=== PATIENT | male | born 1950 | race Caucasian/White ===

== ENCOUNTER 2016-07-27 15:30 | Emergency (ER) | payer MEDICARE, OTHER ==
[2016-07-27 16:21] LABS: #Basophils 0.1 thou/uL (0.0-0.2); #Eosinphils 0.1 thou/uL (0.0-0.7); #Lymphocytes 2.3 thou/uL (1.20-3.40); #Monocytes 0.5 thou/uL (0.11-0.59); #Neutrophils 2.5 thou/uL (1.40-6.50); %Basophils 2.7 % (0.0-1.0); %Eosinophils 2.5 % (0.0-10.0); %Lymphocytes 41.7 % (21.0-51.0); %Monocytes 9.3 % (0.0-10.0); Hematocrit 26.2 % (42.0-52.0); Mean Platelet Volume 6.2 fL (7.4-10.4); Red Blood Cell (RBC) Count 2.61 mill/uL (4.70-6.10); White Blood Cell (WBC) Count 5.6 thou/uL (4.8-10.8)
--- NOTE | 2016-07-27 16:23 | RAD ---
SINGLE VIEW OF THE CHEST: 07/27/16 COMPARISON: 06/21/15 HISTORY: Multiple falls today with bilateral leg pain with weightbearing. Positive alcohol intoxication. FINDINGS: Single view of the chest shows a normal sized cardiomediastinal silhouette with atherosclerotic calc ifications in the aorta. There is no evidence of consolidation, mass, or pleural effusion. IMPRESSION: 1. No evidence of acute cardiopulmonary disease. 2. Atherosclerotic disease. POS: JUAN JOSEH
[2016-07-27 16:36] LABS: ALT (SGPT) 16 U/L (0-55); AST (SGOT) 33 U/L (5-34); Alkaline Phosphatase 104 U/L (40-150); Anion Gap 18 mmol/L (10-20); BUN (Urea Nitrogen) 25 mg/dL (8.4-25.7); Bilirubin, Total 0.2 mg/dL (0.2-1.2); Calc. Creatinine Clearance 0 mL/min (70-130); Calcium 8.1 mg/dL (7.8-10.44); Carbon Dioxide 14 mmol/L (23-31); Chloride 119 mmol/L (98-107); Estimated GFR-MDRD 39; Globulin 3.3 g/dL (2.4-3.5)
[2016-07-27 16:37] LABS: Troponin I 0.044 ng/mL (< 0.028)
[2016-07-27 17:07] LABS: Prothrombin Time 13.4 SEC (12.0-14.7)
== END 2016-07-27 19:26 | disposition short-term general hospital (02) ==
LOC: NAV ERS 15:30
DX: R60.0 Localized edema (principal); N28.9 Disorder of kidney and ureter, unspecified; D64.9 Anemia, unspecified; F17.210 Nicotine dependence, cigarettes, uncomplicated; Z79.899 Other long term (current) drug therapy
CPT/HCPCS: 71010; 80053; 82272; 82553; 83880; 84484; 85025; 85379; 85610; 93005

== ENCOUNTER 2016-08-21 17:48 | Outpatient (CLI) | payer MEDICARE ==
[2016-08-21 18:18] LABS: Anion Gap 26 mmol/L (10-20); BUN (Urea Nitrogen) 62 mg/dL (8.4-25.7); Calc. Creatinine Clearance 0 mL/min (70-130); Calcium 7.6 mg/dL (7.8-10.44); Carbon Dioxide 13 mmol/L (23-31); Chloride 107 mmol/L (98-107); Estimated GFR-MDRD 10; Magnesium 1.6 mg/dL (1.6-2.6)
== END 2016-08-21 17:49 | disposition home or self-care (01) ==
LOC: NAV LABSP 17:48
PROVIDERS: ATTEND Internal Medicine
DX: L03.116 Cellulitis of left lower limb (principal); K74.60 Unspecified cirrhosis of liver
CPT/HCPCS: 80048; 83735